=== PATIENT | female | born 1960 ===

== ENCOUNTER 2019-07-11 17:20 | Emergency (ER) | payer OTHER ==
[~2019-07-11] VITALS: Ht 167.6 cm; Wt 81.0 kg
[2019-07-11] MEDS ORDERED: ACETAMINOPHEN 500 MG TABLET PO ONE (17:45)
[2019-07-11] MEDS ORDERED: INSU100V SQ (17:53)
[2019-07-11] MEDS ORDERED: DIVA-78 PO (17:53)
[2019-07-11] MEDS ORDERED: FURO-152 PO (17:53)
[2019-07-11] MEDS ORDERED: CARI350T26 PO (17:53)
[2019-07-11 18:48] LABS: GLUCOSE,POINT OF CARE 92 MG/DL (70-110)
[2019-07-11] MEDS ORDERED: LIDOCAINE 5% TRANSDERMAL PATCH TD ONE (19:00)
[2019-07-11 19:13] VITALS: BP 131/81
== END 2019-07-11 19:17 | disposition home or self-care (01) ==
LOC: EMS 17:24
DX: S43.402A Unspecified sprain of left shoulder joint, initial encounter (principal); I10 Essential (primary) hypertension; F20.9 Schizophrenia, unspecified; E11.9 Type 2 diabetes mellitus without complications; F31.9 Bipolar disorder, unspecified; F17.210 Nicotine dependence, cigarettes, uncomplicated; Z88.0 Allergy status to penicillin; W18.39XA Other fall on same level, initial encounter; Y93.89 Activity, other specified; Y92.89 Other specified places as the place of occurrence of the external cause; Y99.8 Other external cause status